=== PATIENT | female | born 1995 | race American Indian/Alaskan Native ===

== ENCOUNTER 2025-06-05 15:06 | Emergency (ER) | payer SELFPAY ==
[2025-06-05] MEDS ORDERED: Sodium Chloride 0.9% 10 ML Syringe FLUSH PRN (15:26)
[2025-06-05 15:51] LABS: BASOPHILS PERCENT AUTO 0.2 % (0.0-1.0); EOSINOPHILS PERCENT AUTO 3.9 % (1.0-3.0); LYMPHOCYTES PERCENT AUTO 9.3 % (20.5-50.1); MONOCYTES PERCENT AUTO 3.6 % (2-8); NEUTROPHILS PERCENT AUTO 83.0 % (42.2-75.2); PLATELET COUNT,PLT 274 10^3/uL (150-450); RED BLOOD CELL COUNT 4.15 10^6/uL (4.2-5.4); WHITE BLOOD CELL COUNT,WBC 12.5 10^3/uL (5.0-10.0)
[2025-06-05 16:03] LABS: APPEARANCE,URINE SLIGHTLY CLOUDY (CLEAR); GLUCOSE,URINE NEGATIVE (NEGATIVE); OCCULT BLOOD,URINE TRACE-INTACT (NEGATIVE)
[2025-06-05 16:10] LABS: AMPHETAMINES,URINE POSITIVE (NEGATIVE); BARBITURATES,URINE NEGATIVE (NEGATIVE); MDMA (ECSTASY), URINE NEGATIVE (NEGATIVE); METHAMPHETAMINES,URINE POSITIVE (NEGATIVE); OPIATES,URINE NEGATIVE (NEGATIVE); OXYCODONE,URINE NEGATIVE (NEGATIVE); PHENCYCLIDINE,URINE NEGATIVE (NEGATIVE); TCA,URINE NEGATIVE (NEGATIVE)
[2025-06-05 16:14] LABS: A/G RATIO 1.2; ALANINE AMINOTRANSFERASE,ALT 44 U/L (14-59); ASPARTATE AMNIOTRANSFERASE,AST 51 U/L (15-37); BILIRUBIN TOTAL 1.0 mg/dL (0.2-1.0); BLOOD UREA NITROGEN,BUN 17 mg/dL (7-18); CARBON DIOXIDE,CO2 28 mmol/L (21-32); CHLORIDE,CL 103 mmol/L (98-107); CREATININE 0.94 mg/dL (0.55-1.02); EST CRCL DRUG DOSING (CG) 74.44 mL/min; GLUCOSE RANDOM 120 mg/dL (70-99); PROTEIN TOTAL,TP 6.9 g/dL (6.4-8.2)
[2025-06-05 16:20] LABS: EPITHELIAL CELLS,URINE MODERATE /HPF (NOT SEEN)
[2025-06-05 16:21] LABS: LACTIC ACID 1.2 mmol/L (0.4-2.0)
[2025-06-05 16:23] LABS: SODIUM,NA 139 mmol/L (136-145)
[2025-06-05 16:25] LABS: ESTIMATED GFR 83 mL/min (>=60); ETHANOL BLOOD MEDICAL < 3 mg/dL (0)
[2025-06-05] MEDS: Iopamidol 612 MG/ML 100 ML Bottle IVPUSH ONE (16:27)
[2025-06-05 16:29] LABS: INR 1.0 (0.9-1.2); PTT,PARTIAL THROMBOPLSTIN TIME 23.9 SEC (22.0-34.0)
[2025-06-05 16:31] LABS: POTASSIUM,K 4.5 mmol/L (3.5-5.1)
[2025-06-05 18:06] VITALS: BP 103/65; PULSE 57
== END 2025-06-05 18:00 | disposition home or self-care (01) ==
LOC: DL.ED 15:06
DX: K59.00 Constipation, unspecified (principal); F15.10 Other stimulant abuse, uncomplicated; Y90.0 Blood alcohol level of less than 20 mg/100 ml
CPT/HCPCS: 36415; 74177; 80053; 80305; 80307; 81001; 81025; 83605; 83690; 83735; 84145; 85025; 85610; 85730; 86140; 87040; 87086; 96361; 96374; 99284; J1630; J7030; Q9967